=== PATIENT | female | born 1945 | race Caucasian/White ===

== ENCOUNTER 2018-01-20 12:25 | Inpatient (IN) | payer MEDICARE ==
[2018-01-20 14:01] LABS: Anisocytosis Slight; Basophils % (A) 0 %; Eosinophils # (A) 1.1 k/uL (0-0.7); Eosinophils % (A) 11 %; HCT 38.5 % (34.0-46.0); HGB 11.8 gm/dL (11.4-16.0); Hypochromasia Marked; Lymphocytes # (A) 0.8 k/uL (1.0-4.8); Lymphocytes % (A) 8 %; MCH 28.1 pg (25.0-35.0); MCHC 30.5 g/dL (31.0-37.0); Mean Platelet Volume 7.4; Monocytes # (A) 0.5 k/uL (0-1.0); Monocytes % (A) 5 %; Neutrophils # (A) 7.2 k/uL (1.3-7.7); Neutrophils % (A) 74 %; Platelet Count 327 k/uL (150-450); RBC 4.19 m/uL (3.80-5.40); RDW 16.6 % (11.5-15.5); WBC 9.7 k/uL (3.8-10.6)
[2018-01-20 14:12] LABS: Albumin 3.3 g/dL (3.5-5.0); Calcium 9.2 mg/dL (8.4-10.2); Potassium 5.6 mmol/L (3.5-5.1); Total Bilirubin 0.3 mg/dL (0.2-1.3); Total Protein 5.8 g/dL (6.3-8.2)
[2018-01-20 14:14] LABS: Partial Thromboplastin Time 22.1 sec (22.0-30.0)
--- NOTE | 2018-01-20 14:15 | XR ---
EXAMINATION TYPE: XR knee complete RT DATE OF EXAM: 01/20/2018 COMPARISON: 07/26/2012 HISTORY: MRSA right knee TECHNIQUE: Three-view right knee FINDINGS: Moderate degenerative changes are in the medial compartment. There is tibial plateau and fe moral condylar spurring present. Vascular calcification is present. Stent is at the superficial femor al artery popliteal artery junction. There is loss of patellofemoral joint space. No joint effusion i s evident. No suspicious erosions are identified. No acute fractures are evident. IMPRESSION: 1. Degenerative changes right knee. No acute osseous abnormality evident.
[2018-01-20] MEDS ORDERED: INSULIN ASPART 100 UNIT/ML 1 ML 10 ML VIAL SQ ONE (14:47)
[2018-01-20] MEDS ORDERED: HYDROcodone/APAP 5-325MG 1 EACH TAB PO PRN (15:15)
[2018-01-20] MEDS ORDERED: NALOXONE 0.4 MG/ML 1 ML VIAL IV PRN (15:15)
--- NOTE | 2018-01-20 15:15 | ED ---
Extremity Problem HPI - General Chief complaint: Extremity Problem,Nontraumatic Stated complaint: Knee drainage S/p surgery Time Seen by Provider: 01/20/18 13:12 Source: patient, RN notes reviewed Mode of arrival: wheelchair Limitations: no limitations - History of Present Illness Initial comments: 72-year-old female presented from for right leg infection. Patient states that she was admitted one month ago for MRSA of her right leg, knee. Patient states that she was on antibiotics and sent to rehab. Patient states is all started after receiving a new brace. Patient states that she started having blisters and weeping and redness again. She states her blood sugars have been labile. Patient states that she feels that she has an infection again. Patient states her orthopedic surgeon is Dr. Donahue. - Related Data Home Medications Medication Instructions Recorded Confirmed Acetaminophen [Tylenol] 650 mg PO Q6H PRN 01/20/18 01/20/18 Albuterol Inhaler [Ventolin Hfa 2 puff INHALATION RT-Q6H PRN 01/20/18 01/20/18 Inhaler] Aspirin EC [Ecotrin Low Dose] 81 mg PO DAILY 01/20/18 01/20/18 Atorvastatin Calcium [Lipitor] 80 mg PO DAILY 01/20/18 01/20/18 Clopidogrel Bisulfate [Plavix] 75 mg PO DAILY 01/20/18 01/20/18 Fluticasone/Salmeterol [Advair Hfa 2 puff INHALATION RT-BID 01/20/18 01/20/18 230-21 Mcg Inhaler] Furosemide [Lasix] 40 mg PO BID 01/20/18 01/20/18 Hydrocerin Lot 1 applic TOPICAL QID PRN 01/20/18 01/20/18 Hydrocortisone 1% Lotion 1 applic TOPICAL BID PRN 01/20/18 01/20/18 INSULIN LISPRO (humaLOG) [humaLOG] 10 units SQ TID-W/MEALS 01/20/18 01/20/18 Insulin Glargine,Hum.rec.anlog 45 unit SQ HS 01/20/18 01/20/18 [Lantus Solostar] Isosorbide Mononitrate ER [Imdur] 60 mg PO DAILY 01/20/18 01/20/18 Ketoconazole 2% Cream [Nizoral 2%] 1 applic TOPICAL HS PRN 01/20/18 01/20/18 Liraglutide [Victoza 2-Ayden] 1.2 mg SQ DAILY 01/20/18 01/20/18 Lisinopril [Zestril] 2.5 mg PO DAILY 01/20/18 01/20/18 Metoprolol Succinate (ER) [Toprol 50 mg PO DAILY 01/20/18 01/20/18 Xl] Pantoprazole Sodium 40 mg PO BID 01/20/18 01/20/18 amLODIPine [Norvasc] 10 mg PO DAILY 01/20/18 01/20/18 hydrALAZINE HCL 25 mg PO TID 01/20/18 01/20/18 Allergies Allergy/AdvReac Type Severity Reaction Status Date / Time amoxicillin [From Augmentin] Allergy Swelling Verified 01/20/18 14:10 clavulanic acid Allergy Swelling Verified 01/20/18 14:10 [From Augmentin] celecoxib [From Celebrex] AdvReac pain in Verified 01/20/18 14:10 bilat legs clonidine [From Catapres] AdvReac palpitation Verified 01/20/18 14:10 s Review of Systems ROS Statement: Those systems with pertinent positive or pertinent negative responses have been documented in the HPI. ROS Other: All systems not noted in ROS Statement are negative. Past Medical History Past Medical History: Coronary Artery Disease (CAD), COPD, Diabetes Mellitus, Hyperlipidemia, Hypertension, Myocardial Infarction ([place]) Additional Past Medical History / Comment(s): stage 2 kidney disease, AAA, pvd, gi bleed, retinal detachment History of Any Multi-Drug Resistant Organisms: MRSA Date of last positivie culture/infection: december 2017 Past Surgical History: Heart Catheterization With Stent, Orthopedic Surgery Additional Past Surgical History / Comment(s): rt breast i&d , rt nephrectomy partial, left knee bone graft, rt knee ligament and tendon surgery, cataract surgery with lens implant Past Psychological History: No Psychological Hx Reported Smoking Status: Never smoker Past Alcohol Use History: None Reported Past Drug Use History: None Reported General Exam Limitations: no limitations General appearance: alert, in no apparent distress Neck exam: Present: normal inspection. Absent: tenderness, meningismus, lymphadenopathy Respiratory exam: Present: normal lung sounds bilaterally. Absent: respiratory distress, wheezes, rales, rhonchi, stridor Cardiovascular Exam: Present: regular rate, normal rhythm, normal heart sounds. Absent: systolic murmur, diastolic murmur, rubs, gallop, clicks Extremities exam: Present: other (Mild discomfort with range of motion the right knee, old scar noted, there is blistering, erythema noted to the right leg. Pulses are equal bilaterally) Course Vital Signs 01/20/18 12:52 Temperature 98.7 F Pulse Rate 74 Respiratory 18 Rate Blood Pressure 125/67 O2 Sat by Pulse 95 Oximetry Medical Decision Making - Lab Data Result diagrams: 01/20/18 13:44 01/20/18 13:44 Lab Results 01/20/18 01/20/18 01/20/18 Range/Units 13:44 13:44 13:44 WBC 9.7 (3.8-10.6) k/uL RBC 4.19 (3.80-5.40) m/uL Hgb 11.8 (11.4-16.0) gm/dL Hct 38.5 (34.0-46.0) % MCV 92.0 (80.0-100.0) fL MCH 28.1 (25.0-35.0) pg MCHC 30.5 L (31.0-37.0) g/dL RDW 16.6 H (11.5-15.5) % Plt Count 327 (150-450) k/uL Neutrophils % 74 % Lymphocytes % 8 % Monocytes % 5 % Eosinophils % 11 % Basophils % 0 % Neutrophils # 7.2 (1.3-7.7) k/uL Lymphocytes # 0.8 L (1.0-4.8) k/uL Monocytes # 0.5 (0-1.0) k/uL Eosinophils # 1.1 H (0-0.7) k/uL Basophils # 0.0 (0-0.2) k/uL Hypochromasia Marked Anisocytosis Slight PT 10.0 (9.0-12.0) sec INR 1.0 (<1.2) APTT 22.1 (22.0-30.0) sec Sodium 139 (137-145) mmol/L Potassium 5.6 H (3.5-5.1) mmol/L Chloride 106 (98-107) mmol/L Carbon Dioxide 24 (22-30) mmol/L Anion Gap 9 mmol/L BUN 34 H (7-17) mg/dL Creatinine 1.41 H (0.52-1.04) mg/dL Est GFR (CKD-EPI)AfAm 43 (>60 ml/min/1.73 sqM) Est GFR (CKD-EPI)NonAf 37 (>60 ml/min/1.73 sqM) Glucose 495 H* (74-99) mg/dL Calcium 9.2 (8.4-10.2) mg/dL Total Bilirubin 0.3 (0.2-1.3) mg/dL AST 17 (14-36) U/L ALT 29 (9-52) U/L Alkaline Phosphatase 195 H (38-126) U/L Total Protein 5.8 L (6.3-8.2) g/dL Albumin 3.3 L (3.5-5.0) g/dL Disposition Clinical Impression: Cellulitis of right leg, Contact dermatitis, Hx MRSA infection, Instability of right knee joint, Hyperglycemia Disposition: ADMITTED IP TO THIS HOSP Condition: Stable Referrals: Diane Cuellar MD [Primary Care Provider] - 1-2 days
[2018-01-20] MEDS ORDERED: ALBUTEROL NEBULIZED 2.5 MG/3 ML INHALATION PRN (15:18)
[2018-01-20] MEDS ORDERED: VANCOMYCIN IV PER PHARMACY 1 EACH MISC MISCELLANE PRN (15:19)
[2018-01-20] MEDS ORDERED: VANCOMYCIN 1,750 MG in SODIUM CHLORIDE 0.9% 500 ML IVPB STA (15:31)
[2018-01-20 15:41] LABS: Glucose,Whole Blood 404 mg/dL (75-99)
[2018-01-20 16:51] LABS: Glucose,Whole Blood 273 mg/dL (75-99)
[2018-01-20] MEDS: hydrALAZINE HCL 25 MG TAB PO SCH ×2 (17:07→20:30)
[2018-01-20] MEDS: INSULIN ASPART 100 UNIT/ML 1 ML 10 ML VIAL SQ SCH ×2 (18:04→20:24)
[2018-01-20] MEDS ORDERED: ONDANSETRON 4 MG/2 ML VIAL IVP PRN (18:04)
--- NOTE | 2018-01-20 18:13 | HP ---
HISTORY AND PHYSICAL DATE OF SERVICE: 01/20/2018. CHIEF COMPLAINT: A 72-year-old white female with right leg infection. HISTORY OF PRESENT ILLNESS: This is a 72-year-old white female admitted for MRSA on the right knee a month ago. She was on antibiotics since rehab. She received a new brace. She started to have blisters, weakness and redness again. Her sugars have been really high for diabetes. Her leg got infected again. She is admitted back to the hospital at this time due to significant leg infection. HOME MEDICATIONS: 1. Plavix 75 mg a day. 2. Lipitor 80 mg daily. 3. Aspirin 81 mg daily. 4. Albuterol 2 puffs every 6 hours p.r.n. 5. Tylenol 650 every 6 hours p.r.n. 6. Lasix 40 mg b.i.d. 7. Advair 2 puffs b.i.d. 8. Hydrocortisone lotion topically b.i.d. 9. Humalog 10 units subcutaneous t.i.d. 10.Lantus 45 units daily. 11.Imdur 60 mg daily. 12.Victoza 1.2 mg subcutaneous daily. 13.Ketoconazole topically daily. 14.Zestril 2.5 daily. 15.Toprol-XL 50 mg daily. 16.Pantoprazole 40 mg b.i.d. 17.Norvasc 10 mg daily. 18.Hydralazine 25 t.i.d. ALLERGIES: AUGMENTIN, CELEBREX, CATAPRES. REVIEW OF SYSTEM: A 14-point review of systems is negative except for as mentioned in HPI. PAST MEDICAL HISTORY: Coronary artery disease, COPD, diabetes mellitus, dyslipidemia, hypertension, myocardial infarction, AAA, disease, retinal detachment, heart catheterization with stents, orthopedic surgeries bone graft, right knee ligament tendon surgery, right breast I and D, right nephrectomy partial, left knee bone graft. SOCIAL HISTORY: Does not smoke. No alcohol. No illicit drugs. PHYSICAL EXAMINATION: VITAL SIGNS: Blood pressures, temp 98.7, pulse 74, respiratory 16 to 18, blood pressure 125/67, O2 of 95% on room air. CARDIOVASCULAR: Regular rate and rhythm. EXTREMITIES: Right knee scar noted. Blistering and erythema into the right leg. NEUROLOGIC: Alert and oriented x3. PSYCH: Fair mood and affect GI: Soft, nontender. LABORATORY DATA: Hemoglobin 11.8, white count 9.7, BUN is 34, creatinine 1.41, sodium 139, potassium 5.6, glucose 495. ASSESSMENT: Cellulitis of the right leg, contact dermatitis, history of methicillin-resistant Staphylococcus aureus, instability of right knee joint, insulin-dependent diabetes mellitus with hyperglycemia, protein calorie malnutrition, chronic renal disease stage III, acute on chronic renal insufficiency. IV antibiotics. Infectious Disease consult. Possibly renal consult will be done. Home medicines will be reordered. MMODL / IJN: [id number] /
[2018-01-20 20:25] LABS: Glucose,Whole Blood 188 mg/dL (75-99)
[2018-01-20] MEDS: INSULIN DETEMIR 100 UNIT/ML 10 ML VIAL SQ SCH (20:29)
[2018-01-20] MEDS: FUROSEMIDE 40 MG TAB PO SCH (20:30)
[2018-01-20] MEDS: PANTOPRAZOLE 40 MG TABLET PO SCH (20:30)
[2018-01-20] MEDS: SYMBICORT 160-4.5 MCG INHALER INHALATION SCH (21:48)
[2018-01-21] MEDS ORDERED: VANCOMYCIN 1,750 MG in SODIUM CHLORIDE 0.9% 500 ML IVPB SCH (06:00)
[2018-01-21 06:09] LABS: Calcium 8.9 mg/dL (8.4-10.2); Potassium 4.8 mmol/L (3.5-5.1)
[2018-01-21 06:26] LABS: Glucose,Whole Blood 252 mg/dL (75-99)
[2018-01-21] MEDS: INSULIN ASPART 100 UNIT/ML 1 ML 10 ML VIAL SQ SCH ×4 (06:31→21:41)
--- NOTE | 2018-01-21 08:11 | P.CNOR ---
History of Present Illness - [facility] Consult date: 01/21/18 Consult reason: other (Right knee/leg wounds) History of present illness: The patient's a 72-year-old female who presents with a one-month history of right knee/leg wounds and drainage. She notes it started after use of a new hinged knee brace. She notes every time she wears the brace, when she takes it off she has significant erythema of the skin in the area the brace covers. She denies fevers or chills. She normally ambulates with a walker. She has a history of an open right knee dislocation 18 years ago. 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 Last Myocardial Infarction Date:: 2015 History of Any Multi-Drug Resistant Organisms: MRSA Year Discovered:: december 2017 MDRO Source:: rt knee Past Surgical History: Heart Catheterization With Stent, Orthopedic Surgery Additional Past Surgical History / Comment(s): rt breast i&d , rt nephrectomy partial d/t cyst, left knee bone graft, rt knee ligament and tendon surgery, cataract surgery with lens implant, sx taryn eyes for retinal detatchment Past Anesthesia/Blood Transfusion Reactions: No Reported Reaction Date of Last Stent Placement:: unk Past Psychological History: No Psychological Hx Reported Smoking Status: Never smoker Past Alcohol Use History: None Reported Past Drug Use History: None Reported - Past Family History Father Family Medical History: Unable to Obtain Mother Family Medical History: Unable to Obtain Medications and Allergies Home Medications Medication Instructions Recorded Confirmed Type Acetaminophen [Tylenol] 650 mg PO Q6H PRN 01/20/18 01/20/18 History Albuterol Inhaler [Ventolin Hfa 2 puff INHALATION RT-Q6H PRN 01/20/18 01/20/18 History Inhaler] Aspirin EC [Ecotrin Low Dose] 81 mg PO DAILY 01/20/18 01/20/18 History Atorvastatin Calcium [Lipitor] 80 mg PO DAILY 01/20/18 01/20/18 History Clopidogrel Bisulfate [Plavix] 75 mg PO DAILY 01/20/18 01/20/18 History Fluticasone/Salmeterol [Advair Hfa 2 puff INHALATION RT-BID 01/20/18 01/20/18 History 230-21 Mcg Inhaler] Furosemide [Lasix] 40 mg PO BID 01/20/18 01/20/18 History Hydrocerin Lot 1 applic TOPICAL QID PRN 01/20/18 01/20/18 History Hydrocortisone 1% Lotion 1 applic TOPICAL BID PRN 01/20/18 01/20/18 History INSULIN LISPRO (humaLOG) [humaLOG] 10 units SQ TID-W/MEALS 01/20/18 01/20/18 History Insulin Glargine,Hum.rec.anlog 45 unit SQ HS 01/20/18 01/20/18 History [Lantus Solostar] Isosorbide Mononitrate ER [Imdur] 60 mg PO DAILY 01/20/18 01/20/18 History Ketoconazole 2% Cream [Nizoral 2%] 1 applic TOPICAL HS PRN 01/20/18 01/20/18 History Liraglutide [Victoza 2-Ayden] 1.2 mg SQ DAILY 01/20/18 01/20/18 History Lisinopril [Zestril] 2.5 mg PO DAILY 01/20/18 01/20/18 History Metoprolol Succinate (ER) [Toprol 50 mg PO DAILY 01/20/18 01/20/18 History Xl] Pantoprazole Sodium 40 mg PO BID 01/20/18 01/20/18 History amLODIPine [Norvasc] 10 mg PO DAILY 01/20/18 01/20/18 History hydrALAZINE HCL 25 mg PO TID 01/20/18 01/20/18 History Allergies Allergy/AdvReac Type Severity Reaction Status Date / Time amoxicillin [From Augmentin] Allergy Swelling Verified 01/20/18 14:10 clavulanic acid Allergy Swelling Verified 01/20/18 14:10 [From Augmentin] celecoxib [From Celebrex] AdvReac pain in Verified 01/20/18 14:10 bilat legs clonidine [From Catapres] AdvReac palpitation Verified 01/20/18 14:10 s Physical Examination - Knee right Appearance: effusion Effusion grade: grade 2 Gait: uses walker ROM: flexion: 80 degrees ACL tests: anterior drawer: grade 2, Deepika's: grade 2 PCL tests: posterior drawer: grade 2 Results - Labs Labs: Abnormal Lab Results - Last 24 Hours (Table) 01/20/18 01/20/18 01/20/18 Range/Units 13:44 13:44 15:39 MCHC 30.5 L (31.0-37.0) g/dL RDW 16.6 H (11.5-15.5) % Lymphocytes # 0.8 L (1.0-4.8) k/uL Eosinophils # 1.1 H (0-0.7) k/uL Potassium 5.6 H (3.5-5.1) mmol/L Chloride (98-107) mmol/L BUN 34 H (7-17) mg/dL Creatinine 1.41 H (0.52-1.04) mg/dL Glucose 495 H* (74-99) mg/dL POC Glucose (mg/dL) 404 H (75-99) mg/dL Alkaline Phosphatase 195 H (38-126) U/L Total Protein 5.8 L (6.3-8.2) g/dL Albumin 3.3 L (3.5-5.0) g/dL 01/20/18 01/20/18 01/21/18 Range/Units 16:49 20:23 05:37 MCHC (31.0-37.0) g/dL RDW (11.5-15.5) % Lymphocytes # (1.0-4.8) k/uL Eosinophils # (0-0.7) k/uL Potassium (3.5-5.1) mmol/L Chloride 108 H (98-107) mmol/L BUN 34 H (7-17) mg/dL Creatinine 1.80 H (0.52-1.04) mg/dL Glucose 249 H (74-99) mg/dL POC Glucose (mg/dL) 273 H 188 H (75-99) mg/dL Alkaline Phosphatase (38-126) U/L Total Protein (6.3-8.2) g/dL Albumin (3.5-5.0) g/dL 01/21/18 Range/Units 06:23 MCHC (31.0-37.0) g/dL RDW (11.5-15.5) % Lymphocytes # (1.0-4.8) k/uL Eosinophils # (0-0.7) k/uL Potassium (3.5-5.1) mmol/L Chloride (98-107) mmol/L BUN (7-17) mg/dL Creatinine (0.52-1.04) mg/dL Glucose (74-99) mg/dL POC Glucose (mg/dL) 252 H (75-99) mg/dL Alkaline Phosphatase (38-126) U/L Total Protein (6.3-8.2) g/dL Albumin (3.5-5.0) g/dL H & H 01/20/18 Range/Units 13:44 Hgb 11.8 (11.4-16.0) gm/dL Hct 38.5 (34.0-46.0) % Coagulation 01/20/18 Range/Units 13:44 INR 1.0 (<1.2) Result Diagrams: 01/20/18 13:44 01/21/18 05:37 - Diagnostic results Knee x-ray: report reviewed (Significant osteoarthrosis right knee) Assessment and Plan Assessment: Right knee osteoarthrosis/instability with history of knee dislocation Severe peripheral vascular disease Uncontrolled diabetes Cellulitis/contact dermatitis right leg (1) Cellulitis of right leg Current Visit: Yes Status: Acute Code(s): L03.115 - CELLULITIS OF RIGHT LOWER LIMB SNOMED Code(s): 185172352 (2) Contact dermatitis Current Visit: Yes Status: Acute Priority: Medium Code(s): L25.9 - UNSPECIFIED CONTACT DERMATITIS, UNSPECIFIED CAUSE SNOMED Code(s): 79387322 Plan: At this point I recommend she discontinue use of the new brace as she seems to be reacting to it. She currently is on vancomycin and await infectious disease input regarding her cellulitis and local wound care. I don't feel she has an infection involving the knee joint itself at this point. She can weight-bear as tolerated with assistance and use of a walker. Time with Patient: Less than 30
[2018-01-21] MEDS: SYMBICORT 160-4.5 MCG INHALER INHALATION SCH ×2 (08:13→19:21)
[2018-01-21] MEDS: LISINOPRIL 2.5 MG TAB PO SCH (08:36)
[2018-01-21] MEDS: ASPIRIN 81 MG PO SCH (08:36)
[2018-01-21] MEDS: FUROSEMIDE 40 MG TAB PO SCH ×2 (08:36→15:49)
[2018-01-21] MEDS: CLOPIDOGREL 75 MG TAB PO SCH (08:36)
[2018-01-21] MEDS: amLODIPine 10 MG TAB PO SCH (08:36)
[2018-01-21] MEDS: ATORVASTATIN 80 MG TAB PO SCH (08:36)
[2018-01-21] MEDS: hydrALAZINE HCL 25 MG TAB PO SCH ×3 (08:36→21:44)
[2018-01-21] MEDS: PANTOPRAZOLE 40 MG TABLET PO SCH ×2 (08:37→21:41)
[2018-01-21] MEDS ORDERED: NON-FORMULARY DRUG (Liraglutide [Victoza 2-Pak] 1.2 MG) SQ SCH (09:00)
[2018-01-21] MEDS: METOPROLOL SUCCINATE (ER) 50 MG TAB.ER.24H PO SCH (10:08)
[2018-01-21] MEDS: ISOSORBIDE MONONITRATE ER 60 MG TAB.ER.24H PO SCH (10:08)
[2018-01-21 11:53] LABS: Glucose,Whole Blood 218 mg/dL (75-99)
--- NOTE | 2018-01-21 17:02 | US ---
EXAMINATION TYPE: US venous doppler duplex LE RT DATE OF EXAM: 01/21/2018 4:46 PM COMPARISON: Prior left leg US CLINICAL HISTORY: swelling r/o DVT; right knee swelling with MRSA SIDE PERFORMED: Right TECHNIQUE: The lower extremity deep venous system is examined utilizing real time linear array sonog kalyan with graded compression, doppler sonography and color-flow sonography. VESSELS IMAGED: Common Femoral Vein Deep Femoral Vein Greater Saphenous Vein * Femoral Vein Popliteal Vein Small Saphenous Vein * Proximal Calf Veins (* superficial vessels) Right Leg: Negative for DVT. Fluid collection located anterior, medial and lateral knee with longest midline size = 9.2 x 5.7 x 0.8cm. IMPRESSION: No evidence of deep venous thrombosis. There is fluid seen anteriorly consistent with kne e joint effusion.
[2018-01-21 17:05] LABS: Glucose,Whole Blood 298 mg/dL (75-99)
[2018-01-21 20:36] LABS: Glucose,Whole Blood 294 mg/dL (75-99)
[2018-01-21] MEDS: INSULIN DETEMIR 100 UNIT/ML 10 ML VIAL SQ SCH (21:41)
--- NOTE | 2018-01-21 22:20 | PN ---
PROGRESS NOTE SUBJECTIVE: This is a 72-year-old white female with bilateral leg cellulitis. Orthopedics has cleared her from a knee infection. Awaiting Dr. Thomas's recommendations for IV antibiotics. Remains on IV vancomycin. She will be transferred off the telemetry floor to a regular medical floor. Vital signs stable. Afebrile. Lungs are clear. GI is soft. HEMATOLOGY: Negative Homans. She has cellulitis of bilateral legs with large edema, bilateral legs. ASSESSMENT: 1. Cellulitis of the legs, improving on vancomycin. 2. Knee hematoma. Please see further orders. MMODL / IJN: [id number] /
--- NOTE | 2018-01-22 02:05 | CONS ---
CONSULTATION DATE OF SERVICE: 01/21/2018. REASON FOR CONSULTATION: Right knee cellulitis. HISTORY OF PRESENT ILLNESS: The patient is a 72-year-old female who apparently said that she was admitted at [facility] on December 22 with a problem with the right knee swelling. The patient said they tried to aspirate the knee. However no fluid came out. However, subsequently she was told the culture was positive for MRSA. She has been sent home on some oral antibiotics. However, the patient not sure about the name of those antibiotics and the patient currently off antibiotic therapy. She was given a new brace for support of her right knee where the patient did have multiple surgeries in the past, but no hardware. The patient has noticed to have blisters and weeping and redness mostly on the posterior knee area with concern that she may have infection. Again, the patient presented to the [facility] ER. The patient did have x-rays of the right knee completed, which shows degenerative changes, right knee. No acute osseous abnormalities evident. The patient did have a normal white count 9.7 and no fever. The patient did have blood cultures obtained. The patient has been started on vancomycin. Infectious disease was consulted for further recommendations regarding antibiotic therapy. The patient main symptom has been swelling and redness and weeping. Did have some dull aching pain to the right knee area with intensity about 3 to 4/10, and no radiation. REVIEW OF SYSTEMS: Constitutional: Positive for weakness. Denies any high-grade fever. Eyes no complaint. ENT no complaint. Respiratory no complaint. Cardiovascular no complaint. Genitourinary no complaint. GASTROINTESTINAL: As per HPI. Musculoskeletal: As per HPI. INTEGUMENTARY: no complaint. Psychological no complaint. Endocrine no complaint. Neurologic no complaint. PAST MEDICAL HISTORY: Significant for coronary artery disease, COPD, diabetes mellitus, hypertension, hyperlipidemia, [place], abdominal aortic aneurysm, GI bleed and history of MRSA infection. PAST SURGICAL HISTORY: PTCA with stent, orthopedic surgery, right breast I and D, right nephrectomy, partial left knee bone graft, right knee ligament and tendon surgery. SOCIAL HISTORY: No history of smoking, drinking, or drug use. FAMILY HISTORY: No pertinent findings noticed. ALLERGIES: TO AMOXICILLIN, CELEBREX AND CLONIDINE. MEDICATION: Include the patient on vancomycin 1750 every 48 hours. She has been put on Zofran, Narcan, Toprol-XL, Zestril, Imdur, Levemir, NovoLog, hydralazine, Lasix, Plavix, Symbicort, Lipitor, aspirin, Norvasc, [place], and Tylenol. EXAMINATION: Blood pressure is 119/52 with a pulse of 73, temperature 98.7. She is 92% on room air. General description is an elderly female lying in bed in no distress. No tachypnea or accessory muscles for respiration use. HEENT: Shows no pallor or scleral icterus. Oral mucosal membranes dry. No erythema or thrush. Neck trachea central. No thyromegaly. Lungs unlabored breathing, clear to auscultation anteriorly. No wheeze or crackles. Heart S1, S2. Regular rate and rhythm. ABDOMEN: Soft, no tenderness. No guarding. No rigidity. Extremities: Right knee did have some swelling. She did have some erythema in the posterior knee area with some weeping, but no purulent drainage was noticed. Skin Examination: No rash or mass palpable. Neurological: Patient is awake, alert, oriented times three. Mood and affect normal. LABS: Hemoglobin is 11.8, white count of 9.7 with a BUN of 34, creatinine 1.0. Electrolytes have been normal. Blood culture has been negative so far. X-rays of the knee as mentioned above. DIAGNOSTIC IMPRESSION AND PLAN: Patient admitted to the hospital with right knee swelling and redness. The patient apparently did have a recent knee aspirate done at the [facility] with positive for MRSA. The patient is not sure about the length and treatment of antibiotic that she may have received. We will try to obtain those records with concern for possible posterior knee cellulitis, not entirely excluded. However, in view of significant swelling to the leg, underlying deep vein thrombosis needs to be ruled out. PLAN: 1. We will obtain a stat lower extremity Doppler to make sure no evidence of any DVT. 2. If there is no evidence of any DVT in the legs, we will apply tried cream to the Aquacel Silver dressing to the posterior knee area followed by an Tigre wrap to keep the swelling down. 3. Vancomycin pharmacy to dose, target of 15. However need to watch kidney function very closely. 4. We will follow up on clinical condition and culture to further adjust medication if needed. Thank you for this consultation. We will follow this patient along with you. MMODL / IJN: [id number] /
[2018-01-22] MEDS: ACETAMINOPHEN TAB 325 MG TAB PO PRN ×2 (06:06→15:35)
[2018-01-22 07:13] LABS: Glucose,Whole Blood 347 mg/dL (75-99)
[2018-01-22] MEDS: SYMBICORT 160-4.5 MCG INHALER INHALATION SCH ×2 (07:24→18:47)
[2018-01-22] MEDS: INSULIN ASPART 100 UNIT/ML 1 ML 10 ML VIAL SQ SCH ×4 (07:33→20:37)
[2018-01-22] MEDS: amLODIPine 10 MG TAB PO SCH (07:34)
[2018-01-22] MEDS: PANTOPRAZOLE 40 MG TABLET PO SCH ×2 (07:34→20:37)
[2018-01-22] MEDS: LISINOPRIL 2.5 MG TAB PO SCH (07:34)
[2018-01-22] MEDS: ATORVASTATIN 80 MG TAB PO SCH (07:34)
[2018-01-22] MEDS: CLOPIDOGREL 75 MG TAB PO SCH (07:34)
[2018-01-22] MEDS: hydrALAZINE HCL 25 MG TAB PO SCH ×3 (07:34→20:36)
[2018-01-22] MEDS: ISOSORBIDE MONONITRATE ER 60 MG TAB.ER.24H PO SCH (07:34)
[2018-01-22] MEDS: ASPIRIN 81 MG PO SCH (07:34)
[2018-01-22] MEDS: FUROSEMIDE 40 MG TAB PO SCH ×2 (07:34→15:37)
[2018-01-22] MEDS: METOPROLOL SUCCINATE (ER) 50 MG TAB.ER.24H PO SCH (07:34)
[2018-01-22 09:34] VITALS: BMI 39.9
[2018-01-22 11:13] LABS: Glucose,Whole Blood 300 mg/dL (75-99)
[2018-01-22 17:21] LABS: Glucose,Whole Blood 382 mg/dL (75-99)
--- NOTE | 2018-01-22 19:36 | PN ---
PROGRESS NOTE SUBJECTIVE: A 72-year-old white female with diabetes mellitus, was seen by Dr. Thomas. He did already read Doppler to rule out any DVT. He wants to order Aquacel Silver to the posterior knee with an Tigre wrap, vancomycin, his dose for a target of 15. She is not vomiting anymore. No abdominal pain. Sugars are elevated in the 200s-300s. Orthopedic consult was reviewed. Venous Doppler of the legs was significant for no DVT. CARDIAC: S1, S2. ENDOCRINE: BMI is over 40. Lungs are clear. Integument shows bilateral extremity redness and swelling in bilateral legs. ASSESSMENT: 1. Cellulitis of bilateral legs. Deep venous thrombosis is ruled out. 2. History of hypertension. 3. Peripheral vascular disease. 4. Coronary artery disease. 5. Hypertension. Cleared by Cardiology. Continue with broad-spectrum IV vancomycin and please see further orders in the chart. MMODL / IJN: [id number] /
[2018-01-22 20:22] LABS: Glucose,Whole Blood 379 mg/dL (75-99)
[2018-01-22] MEDS: INSULIN DETEMIR 100 UNIT/ML 10 ML VIAL SQ SCH (20:39)
[2018-01-23] MEDS: ACETAMINOPHEN TAB 325 MG TAB PO PRN (01:38)
[2018-01-23] MEDS ORDERED: VANCOMYCIN 1,750 MG in SODIUM CHLORIDE 0.9% 500 ML IVPB SCH (06:00)
--- NOTE | 2018-01-23 06:34 | PN ---
PROGRESS NOTE DATE OF SERVICE: 01/22/2018. REASON FOR FOLLOWUP: Right leg and knee cellulitis. INTERVAL HISTORY: The patient is afebrile. She is currently breathing comfortably. Did mention overall pain and swelling to the right leg area slightly improved after application of the dressing and Tigre wrap. No abdominal pain and no diarrhea. EXAMINATION: Blood pressure 152/72 with a pulse of 75. Temperature 98.3. She is 93% on room air. General description is an elderly female lying in bed in no distress. Respiratory system: Unlabored breathing. Clear to auscultation anteriorly. Heart S1, S2. Regular rate and rhythm. ABDOMEN: Soft. No tenderness. Right leg wound is currently dressed up. No obvious drainage on the dressing. LABS: The blood culture so far negative. DIAGNOSTIC IMPRESSION AND PLAN: Patient with a right knee and posterior knee area wound with some cellulitis and swelling. To continue local wound care with Aquacel Silver dressing, Tigre wrap. Antibiotic in the form of vancomycin. Re-evaluate the wound tomorrow. Continue supportive care. MMODL / IJN: [id number] /
[2018-01-23 07:25] LABS: Glucose,Whole Blood 247 mg/dL (75-99)
[2018-01-23] MEDS: INSULIN ASPART 100 UNIT/ML 1 ML 10 ML VIAL SQ SCH ×4 (07:29→21:09)
[2018-01-23] MEDS: PANTOPRAZOLE 40 MG TABLET PO SCH ×2 (07:30→21:08)
[2018-01-23] MEDS: FUROSEMIDE 40 MG TAB PO SCH ×2 (07:30→15:08)
[2018-01-23] MEDS: LISINOPRIL 2.5 MG TAB PO SCH (07:31)
[2018-01-23] MEDS: amLODIPine 10 MG TAB PO SCH (07:31)
[2018-01-23] MEDS: hydrALAZINE HCL 25 MG TAB PO SCH ×3 (07:31→21:08)
[2018-01-23] MEDS: CLOPIDOGREL 75 MG TAB PO SCH (07:31)
[2018-01-23] MEDS: ISOSORBIDE MONONITRATE ER 60 MG TAB.ER.24H PO SCH (07:31)
[2018-01-23] MEDS: METOPROLOL SUCCINATE (ER) 50 MG TAB.ER.24H PO SCH (07:31)
[2018-01-23] MEDS: ATORVASTATIN 80 MG TAB PO SCH (07:31)
[2018-01-23] MEDS: ASPIRIN 81 MG PO SCH (07:31)
[2018-01-23 07:35] LABS: Calcium 8.7 mg/dL (8.4-10.2); Potassium 4.9 mmol/L (3.5-5.1)
[2018-01-23] MEDS: SYMBICORT 160-4.5 MCG INHALER INHALATION SCH ×2 (11:57→20:50)
[2018-01-23 12:10] LABS: Glucose,Whole Blood 279 mg/dL (75-99)
[2018-01-23] MEDS ORDERED: diphenhydrAMINE 25 MG CAP PO PRN (14:17)
[2018-01-23 17:29] LABS: Glucose,Whole Blood 292 mg/dL (75-99)
[2018-01-23 20:21] LABS: Glucose,Whole Blood 257 mg/dL (75-99)
[2018-01-23] MEDS: MINERAL OIL-WHITE PETROLATUM CREAM 454 GM JAR TOPICAL SCH (21:09)
[2018-01-23] MEDS: INSULIN DETEMIR 100 UNIT/ML 10 ML VIAL SQ SCH (21:09)
--- NOTE | 2018-01-23 21:49 | PN ---
PROGRESS NOTE SUBJECTIVE: 72-year-old white female who is afebrile. Pain and swelling on the right leg is improving with Tigre wrap and dressing. Continues on antibiotic cream. Cardiovascular S1, S2. Pulse 79, temp 98.3, blood pressure 150s over 70s, O2 93% on room air. Cardiovascular: S1, S2. Heart S1, S2. Lungs are clear. GI soft. Integument unchanged. Tigre wraps to the legs. Cellulitis swelling. Continue with Aquacel Silver dressing, tigre wraps, antibiotics with vancomycin. We will reevaluate in the morning. Continue current treatment. MMODL / IJN: [id number] /
[2018-01-23 23:26] VITALS: RESP 16; TEMP 97.4
--- NOTE | 2018-01-24 00:01 | PN ---
PROGRESS NOTE DATE OF SERVICE: 01/23/2018. REASON FOR FOLLOWUP: Right posterior knee wound cellulitis. INTERVAL HISTORY: The patient is currently afebrile. She is feeling better. The right knee swelling and pain has improved. No further seepage has been noticed from the posterior knee area or any drainage. EXAMINATION: Blood pressure is 152/81 with a pulse of 55, temperature 98.4, she is 92% on room air. GENERAL DESCRIPTION: An elderly female, lying in bed in no distress. RESPIRATORY SYSTEM: Unlabored breathing. Clear to auscultation anteriorly. HEART: S1, S2. Regular rate and rhythm. ABDOMEN: Soft, no tenderness. EXTREMITIES: Right posterior knee wound has dried out. Swelling persists. Redness has improved. No drainage. LABS: BUN of 37, creatinine 1.73. DIAGNOSTIC IMPRESSION AND PLAN: Patient with a right posterior knee irritation, cellulitis and drainage. Treated with knee immobilizer which has been discontinued with a component of cellulitis that did respond to vancomycin. Will be transitioned to oral antibiotics. Continue with Tigre wrap to keep the swelling down. Discontinue with Aquacel Silver dressing as the wound has healed up. MMODL / IJN: [id number] /
[2018-01-24] MEDS: ACETAMINOPHEN TAB 325 MG TAB PO PRN (02:46)
[2018-01-24 06:53] LABS: Anisocytosis Slight; Basophils % (A) 0 %; Eosinophils # (A) 0.9 k/uL (0-0.7); Eosinophils % (A) 12 %; HCT 37.8 % (34.0-46.0); HGB 11.6 gm/dL (11.4-16.0); Hypochromasia Moderate; Lymphocytes # (A) 0.9 k/uL (1.0-4.8); Lymphocytes % (A) 12 %; MCH 27.5 pg (25.0-35.0); MCHC 30.6 g/dL (31.0-37.0); Mean Platelet Volume 6.8; Monocytes # (A) 0.4 k/uL (0-1.0); Monocytes % (A) 5 %; Neutrophils # (A) 5.3 k/uL (1.3-7.7); Neutrophils % (A) 68 %; Platelet Count 322 k/uL (150-450); RDW 16.7 % (11.5-15.5); WBC 7.8 k/uL (3.8-10.6)
[2018-01-24 07:05] LABS: Albumin 3.1 g/dL (3.5-5.0); Calcium 9.2 mg/dL (8.4-10.2); Potassium 5.6 mmol/L (3.5-5.1); Total Bilirubin 0.2 mg/dL (0.2-1.3); Total Protein 5.8 g/dL (6.3-8.2)
[2018-01-24 07:21] LABS: Glucose,Whole Blood 290 mg/dL (75-99)
[2018-01-24] MEDS: SYMBICORT 160-4.5 MCG INHALER INHALATION SCH (07:46)
[2018-01-24] MEDS: LISINOPRIL 2.5 MG TAB PO SCH (08:16)
[2018-01-24] MEDS: CLOPIDOGREL 75 MG TAB PO SCH (08:16)
[2018-01-24] MEDS: INSULIN ASPART 100 UNIT/ML 1 ML 10 ML VIAL SQ SCH ×2 (08:16→12:52)
[2018-01-24] MEDS: amLODIPine 10 MG TAB PO SCH (08:16)
[2018-01-24] MEDS: METOPROLOL SUCCINATE (ER) 50 MG TAB.ER.24H PO SCH (08:16)
[2018-01-24] MEDS: ISOSORBIDE MONONITRATE ER 60 MG TAB.ER.24H PO SCH (08:16)
[2018-01-24] MEDS: ASPIRIN 81 MG PO SCH (08:16)
[2018-01-24] MEDS: ATORVASTATIN 80 MG TAB PO SCH (08:16)
[2018-01-24] MEDS: PANTOPRAZOLE 40 MG TABLET PO SCH (08:16)
[2018-01-24] MEDS: hydrALAZINE HCL 25 MG TAB PO SCH ×2 (08:16→15:47)
[2018-01-24] MEDS: MINERAL OIL-WHITE PETROLATUM CREAM 454 GM JAR TOPICAL SCH (08:16)
[2018-01-24] MEDS: FUROSEMIDE 40 MG TAB PO SCH ×2 (08:16→15:47)
[2018-01-24 09:08] VITALS: BP 151/76; PULSE 68
[2018-01-24 11:54] LABS: Glucose,Whole Blood 285 mg/dL (75-99)
[2018-01-24] MEDS ORDERED: VANCOMYCIN 1,750 MG in SODIUM CHLORIDE 0.9% 500 ML IVPB SCH (12:00)
[2018-01-24] MEDS ORDERED: DOXYCYCLINE MONOHYDRATE 100 MG CAPSULE PO SCH (12:15)
--- NOTE | 2018-01-24 12:23 | PN ---
PROGRESS NOTE DATE OF SERVICE: 01/24/2018. REASON FOR FOLLOWUP: Right lower extremity cellulitis. INTERVAL HISTORY: The patient is currently afebrile. She is breathing comfortably. Denies any chest pain or shortness of breath or cough. No abdominal pain. No pain to the right leg area. EXAMINATION: Blood pressure 151/76, pulse of 68, temperature 97.4, she is 95% on room air. General description is an elderly female lying in bed in no distress. RESPIRATORY SYSTEM: Unlabored breathing. Clear to auscultation anteriorly. HEART: S1, S2. Regular rate and rhythm. ABDOMEN: Soft, no tenderness. Right leg overall swelling has improved. No drainage. LABS: White count normal at 7.8 with a BUN 34, creatinine 1.55. DIAGNOSTIC IMPRESSION AND PLAN: Patient with right lower extremity cellulitis, especially with superficial wound to the right posterior knee area. Plan is to finish therapy with short course of oral doxycycline along with Tigre wrap to keep the swelling down. Continue supportive care. MMODL / IJN: [id number] /
--- NOTE | 2018-01-25 13:54 | CDI ---
Last Revision, May 2017 Documentation Clarification Form Date: 01/25/18 From: Miguelina Yee Phone: If you have a question regarding this query, please contact Vidhya Owen at [phone] between 8am and 5pm. Admit Date: 01/20/2018 3:53:00 PM Patient Name: Clarissa Colvin Visit Number: [id number] Discharge Date: 01/24/18 ATTENTION: The Clinical Documentation Specialists (CDI) and [facility] Coding Staff appreciate your assistance in clarifying documentation. Please respond to the clarification below the line at the bottom and electronically sign. The CDI & [facility] Coding staff will review the response and follow-up if needed. Please note: Queries are made part of the Legal Health Record. If you have any questions, please contact the author of this message via ITS. Dr. Amor Gonzalez MD Patient has been described as obese in the nutritional assessment by the registered nurse bone marrow transplant. History/Risk Factors: Patient has a history of diabetes, CAD, hypertension, previous [place] and CKD stage 3. Clinical Indicators: elevated BMI Patients weight is 119.1 kg Patients height is 5ft 8 in Calculated BMI is 39.9 Nutritional Education: Nutrition relationship to health/disease consistent carb meal plan. In order to capture the severity of condition associated with patient BMI of 39.9, a clinical diagnoses needs to be documented by the physician. Please clarify: Obese Morbidly obese Other, please specify ____ Unable to determine MTDD
--- NOTE | 2018-01-28 15:10 | CDI ---
Last Revision, May 2017 Documentation Clarification Form Date: 01/28/18 From: Miguelina Yee Phone: If you have a question regarding this query, please contact Vidhya Owen at [phone] between 8am and 5pm. Admit Date: 01/20/2018 3:53:00 PM Patient Name: Clarissa Colvin Visit Number: [id number] Discharge Date: 01/24/18 ATTENTION: The Clinical Documentation Specialists (CDI) and [facility] Coding Staff appreciate your assistance in clarifying documentation. Please respond to the clarification below the line at the bottom and electronically sign. The CDI & [facility] Coding staff will review the response and follow-up if needed. Please note: Queries are made part of the Legal Health Record. If you have any questions, please contact the author of this message via ITS. Dr. Amor Gonzalez MD Thank you for signing your previous query. Please document a response before signing this query. Patient has been described as obese in the nutritional assessment by the registered dietetic technician. History/Risk Factors: Patient has a history of diabetes, CAD, hypertension, previous [place] and CKD stage 3. Clinical Indicators: elevated BMI Patients weight is 119.1 kg Patients height is 5ft 8 in Calculated BMI is 39.9 Nutritional Education: Nutrition relationship to health/disease consistent carb meal plan. In order to capture the severity of condition associated with patient BMI of 39.9, a clinical diagnoses needs to be documented by the physician. Please clarify: Obese Morbidly obese Other, please specify ____ Unable to determine MTDD
== END 2018-01-24 17:52 | disposition home health service (06) | DRG 603 ==
LOC: EC 12:25 → 6SEL 15:53 → 5MS5E 01-21 13:04
PROVIDERS: ADMIT Family Medicine; ATTEND Family Medicine
DX: L03.115 Cellulitis of right lower limb (principal); N17.9 Acute kidney failure, unspecified; L25.9 Unspecified contact dermatitis, unspecified cause; M17.10 Unilateral primary osteoarthritis, unspecified knee; M25.361 Other instability, right knee; E11.22 Type 2 diabetes mellitus with diabetic chronic kidney disease; E11.51 Type 2 diabetes mellitus with diabetic peripheral angiopathy without gangrene; E11.65 Type 2 diabetes mellitus with hyperglycemia; E78.5 Hyperlipidemia, unspecified; I12.9 Hypertensive chronic kidney disease with stage 1 through stage 4 chronic kidney disease, or unspecified chronic kidney disease; I25.10 Atherosclerotic heart disease of native coronary artery without angina pectoris; I25.2 Old myocardial infarction; J44.9 Chronic obstructive pulmonary disease, unspecified; N18.3 Chronic kidney disease, stage 3 (moderate); I71.4 Abdominal aortic aneurysm, without rupture; S80.911A Unspecified superficial injury of right knee, initial encounter; Z79.02 Long term (current) use of antithrombotics/antiplatelets; Z79.4 Long term (current) use of insulin; Z79.51 Long term (current) use of inhaled steroids; Z79.82 Long term (current) use of aspirin; Z79.899 Other long term (current) drug therapy; Z86.14 Personal history of Methicillin resistant Staphylococcus aureus infection; Z98.49 Cataract extraction status, unspecified eye; Z96.1 Presence of intraocular lens; Z95.5 Presence of coronary angioplasty implant and graft; Z90.5 Acquired absence of kidney; Z88.1 Allergy status to other antibiotic agents; Z88.8 Allergy status to other drugs, medicaments and biological substances
CPT/HCPCS: 36415; 80048; 80053; 80202; 83036; 85025; 85610; 85730; 87040; 94640; 99284